=== PATIENT | female | born 1965 | race Asian ===

== ENCOUNTER 2022-12-25 16:09 | Emergency (ER) | payer MEDICAID ==
[~2022-12-25] VITALS: Ht 137.2 cm; Wt 63.6 kg
[2022-12-25 16:31] LABS: BASOPHILS # (AUTO) 0.1 X10'3 (0-0.2); BASOPHILS % (AUTO) 1.9 % (0-1); EOSINOPHILS # (AUTO) 0.1 X10'3 (0-0.9); EOSINOPHILS % (AUTO) 1.6 % (0-6); HEMATOCRIT 29.4 % (35.0-45.0); HEMOGLOBIN 8.9 g/dl (12.0-16.0); LYMPHOCYTES # (AUTO) 1.6 X10'3 (1.1-4.8); LYMPHOCYTES % (AUTO) 29.7 % (21-51); MEAN CORPUSCULAR HEMOGLOBIN 19.5 PG (27.0-31.0); MEAN CORPUSCULAR HGB CONC 30.2 g/dL (33.0-36.5); MEAN CORPUSCULAR VOLUME 64.5 FL (78-98); MEAN PLATELET VOLUME 8.3 FL (7.4-10.4); MONOCYTES # (AUTO) 0.4 X10'3 (0-0.9); NEUTROPHILS # (AUTO) 3.2 X10'3 (1.8-7.7); NEUTROPHILS % (AUTO) 58.8 % (42-75); PLATELET COUNT 332 X10'3 (140-440); RED BLOOD COUNT 4.56 X10'6 (4.20-5.60); RED CELL DISTRIBUTION WIDTH 21.3 % (11.5-14.5); WHITE BLOOD COUNT 5.5 X10'3 (4.5-11.0)
[2022-12-25 16:42] LABS: ALANINE AMINOTRANSFERASE 19 U/L (12-78); ALBUMIN 3.1 G/DL (3.4-5.0); ALBUMIN/GLOBULIN RATIO 0.7 (1.1-1.5); ALKALINE PHOSPHATASE 114 IU/L (46-116); ANION GAP 8 (8-16); ASPARTATE AMINO TRANSFERASE 20 U/L (10-37); BILIRUBIN,TOTAL 0.3 MG/DL (0.1-1.0); BLOOD UREA NITROGEN 11 MG/DL (7-18); CHLORIDE 106 MMOL/L (99-107); CREATININE 0.55 MG/DL (0.40-0.90); GLUCOSE 111 MG/DL (70-104); POTASSIUM 4.3 MMOL/L (3.5-5.1); SODIUM 140 MMOL/L (135-145); TOTAL CARBON DIOXIDE 25.6 MMOL/L (24-32); TOTAL PROTEIN 7.3 G/DL (6.4-8.2); eGFR > 90 ML/MIN
[2022-12-25 16:45] LABS: LARGE PLATELETS FEW; PLATELET ESTIMATE NORMAL
[2022-12-25 16:46] LABS: ANISOCYTOSIS 3+; ELLIPTOCYTES 1+; HYPOCHROMASIA 1+; MICROCYTOSIS 2+
[2022-12-25 16:49] LABS: MAGNESIUM 1.9 MG/DL (1.5-2.4)
[2022-12-25] MEDS ORDERED: potassium Cl 20 mEq SR tablet PO STA (17:56)
[2022-12-25] MEDS ORDERED: furosemide 10 MG/1 ML 10ml inj IV ONE (18:00)
[2022-12-25] MEDS ORDERED: POTA-192 PO (19:13)
[2022-12-25] MEDS ORDERED: FURO-150 PO (19:13)
[2022-12-25] MEDS ORDERED: CLOP-32 PO (19:13)
[2022-12-25 19:37] VITALS: BP 126/72
== END 2022-12-25 19:39 | disposition home or self-care (01) ==
LOC: ER 16:10
DX: R07.9 Chest pain, unspecified (principal); I25.10 Atherosclerotic heart disease of native coronary artery without angina pectoris; R05.2 Subacute cough; I50.9 Heart failure, unspecified
CPT/HCPCS: 36415; 71045; 80053; 83735; 83880; 84484; 85008; 85025; 93005; 96374; 99285; J1940

== ENCOUNTER 2023-01-04 21:21 | Emergency (ER) | payer MEDICAID ==
[~2023-01-04] VITALS: Ht 139.7 cm; Wt 79.5 kg
[~2023-01-04 21:21] MED LIST: CLOP-32 PO; FURO-150 PO; POTA-192 PO
[2023-01-04] MEDS ORDERED: albuterol 2.5 MG/3 ML nebule NEB ONE (21:30)
[2023-01-04] MEDS ORDERED: methylPREDNISolone sod succ 125mg/2ml vial IV ONE (21:30)
[2023-01-04 21:51] LABS: BASOPHILS # (AUTO) 0.1 X10'3 (0-0.2); BASOPHILS % (AUTO) 1.2 % (0-1); EOSINOPHILS # (AUTO) 0.1 X10'3 (0-0.9); EOSINOPHILS % (AUTO) 2.3 % (0-6); HEMATOCRIT 27.6 % (35.0-45.0); HEMOGLOBIN 8.4 g/dl (12.0-16.0); LYMPHOCYTES # (AUTO) 1.7 X10'3 (1.1-4.8); LYMPHOCYTES % (AUTO) 29.5 % (21-51); MEAN CORPUSCULAR HEMOGLOBIN 19.5 PG (27.0-31.0); MEAN CORPUSCULAR HGB CONC 30.4 g/dL (33.0-36.5); MEAN CORPUSCULAR VOLUME 64.2 FL (78-98); MEAN PLATELET VOLUME 7.3 FL (7.4-10.4); MONOCYTES # (AUTO) 0.4 X10'3 (0-0.9); MONOCYTES % (AUTO) 6.2 % (2-12); NEUTROPHILS # (AUTO) 3.5 X10'3 (1.8-7.7); NEUTROPHILS % (AUTO) 60.8 % (42-75); PLATELET COUNT 342 X10'3 (140-440); RED BLOOD COUNT 4.29 X10'6 (4.20-5.60); RED CELL DISTRIBUTION WIDTH 21.4 % (11.5-14.5); WHITE BLOOD COUNT 5.8 X10'3 (4.5-11.0)
[2023-01-04 22:05] LABS: ALANINE AMINOTRANSFERASE 12 U/L (12-78); ALBUMIN/GLOBULIN RATIO 0.7 (1.1-1.5); ALKALINE PHOSPHATASE 105 IU/L (46-116); ANION GAP 11 (8-16); ASPARTATE AMINO TRANSFERASE 18 U/L (10-37); BILIRUBIN,TOTAL 0.3 MG/DL (0.1-1.0); BLOOD UREA NITROGEN 11 MG/DL (7-18); BUN/CREATININE RATIO 19.3 (6.6-38.0); CALCIUM 8.7 MG/DL (8.5-10.1); CHLORIDE 105 MMOL/L (99-107); CREATININE 0.57 MG/DL (0.40-0.90); GLUCOSE 111 MG/DL (70-104); SODIUM 138 MMOL/L (135-145); TOTAL CARBON DIOXIDE 22.2 MMOL/L (24-32); TOTAL PROTEIN 7.4 G/DL (6.4-8.2); eGFR > 90 ML/MIN
[2023-01-04 22:10] LABS: POTASSIUM 4.1 MMOL/L (3.5-5.1)
[2023-01-04 22:33] LABS: ANISOCYTOSIS 3+; MICROCYTOSIS 2+; PLATELET ESTIMATE NORMAL
[2023-01-04 22:40] LABS: ELLIPTOCYTES 1+; HYPOCHROMASIA 1+; SCHISTOCYTES FEW
[2023-01-05] MEDS ORDERED: dexamethasone 4mg tablet PO ONE (01:00)
[2023-01-05] MEDS ORDERED: albuterol 2.5 MG/3 ML nebule NEB ONE (01:00)
[2023-01-05] MEDS ORDERED: ALBU6.7H14 INH (01:03)
[2023-01-05] MEDS ORDERED: DEC4T PO (01:03)
[2023-01-05 02:30] VITALS: BP 98/65
== END 2023-01-05 02:31 | disposition home or self-care (01) ==
LOC: ER 21:21
DX: J44.1 Chronic obstructive pulmonary disease with (acute) exacerbation (principal); I50.9 Heart failure, unspecified; M19.90 Unspecified osteoarthritis, unspecified site
CPT/HCPCS: 36415; 71045; 80053; 83880; 84484; 85008; 85025; 93005; 94640; 96374; 99285; J2930; 94760

== ENCOUNTER 2023-10-19 14:15 | Inpatient (IN) | payer MEDICAID ==
[~2023-10-19] VITALS: Ht 142.2 cm; Wt 62.3 kg
[~2023-10-19 14:15] MED LIST changes: +ALBU6.7H14 INH; -FURO-150 PO; -POTA-192 PO
[2023-10-19] MEDS ORDERED: aspirin 81mg tab.chew PO ONE (14:30)
[2023-10-19 17:12] LABS: BASOPHILS % (AUTO) 0.7 % (0-1); EOSINOPHILS % (AUTO) 0.6 % (0-6); LYMPHOCYTES # (AUTO) 1.5 X10'3 (1.1-4.8); LYMPHOCYTES % (AUTO) 24.6 % (21-51); MEAN PLATELET VOLUME 8.6 FL (7.4-10.4); MONOCYTES # (AUTO) 0.5 X10'3 (0-0.9); MONOCYTES % (AUTO) 7.9 % (2-12); NEUTROPHILS % (AUTO) 66.2 % (42-75); PLATELET COUNT 300 X10'3 (140-440)
[2023-10-19 17:27] LABS: ALANINE AMINOTRANSFERASE 13 U/L (12-78); ALBUMIN 2.6 G/DL (3.4-5.0); ALBUMIN/GLOBULIN RATIO 0.6 (1.1-1.5); ALKALINE PHOSPHATASE 107 IU/L (46-116); ANION GAP 7 (8-16); ASPARTATE AMINO TRANSFERASE 21 U/L (10-37); BILIRUBIN,TOTAL 0.9 MG/DL (0.1-1.0); BLOOD UREA NITROGEN 12 MG/DL (7-18); BUN/CREATININE RATIO 20.7 (10.0-20.0); CALCIUM 8.6 MG/DL (8.5-10.1); CHLORIDE 105 MMOL/L (99-107); CREATININE 0.58 MG/DL (0.40-0.90); POTASSIUM 4.3 MMOL/L (3.5-5.1); SODIUM 137 MMOL/L (135-145); TOTAL CARBON DIOXIDE 25.3 MMOL/L (24-32); TOTAL PROTEIN 6.8 G/DL (6.4-8.2); eCRCL 63 ML/MIN; eGFR > 90 ML/MIN
[2023-10-19 17:37] LABS: MAGNESIUM 1.9 MG/DL (1.5-2.4); PRO BRAIN NATRIURETIC PEPTIDE 9804 PG/ML (0-125)
[2023-10-19 17:38] LABS: GLUCOSE 97 MG/DL (70-104)
[2023-10-19 17:48] LABS: HEMOGLOBIN 8.3 g/dl (12.0-16.0); MEAN CORPUSCULAR HEMOGLOBIN 18.2 PG (27.0-31.0); MEAN CORPUSCULAR HGB CONC 30.7 g/dL (33.0-36.5); MEAN CORPUSCULAR VOLUME 59.1 FL (78-98); RED BLOOD COUNT 4.57 X10'6 (4.20-5.60); RED CELL DISTRIBUTION WIDTH 21.5 % (11.5-14.5)
[2023-10-19 18:45] LABS: PLATELET ESTIMATE NORMAL
[2023-10-19 18:46] LABS: ANISOCYTOSIS 3+; HYPOCHROMASIA 1+; MICROCYTOSIS 2+
[2023-10-19 18:47] LABS: ELLIPTOCYTES 1+; SCHISTOCYTES FEW
[2023-10-19] MEDS ORDERED: aspirin 325mg tablet, delayed-release (Ecotrin) PO ONE (20:00)
[2023-10-19] MEDS ORDERED: nitroGLYCERIN 1gm ointment UD TP ONE (20:00)
[2023-10-19] MEDS ORDERED: heparin 10,000 units/1 ML INJ IV ONE (20:05)
[2023-10-19 20:27] LABS: APTT 25 SECONDS (22-32); INR 1.1 INR; PROTHROMBIN TIME 11.6 SECONDS (9.0-12.0)
[2023-10-19 20:50] LABS: BASOPHILS # (AUTO) 0.1 X10'3 (0-0.2); EOSINOPHILS # (AUTO) 0.1 X10'3 (0-0.9); EOSINOPHILS % (AUTO) 1.1 % (0-6); LYMPHOCYTES # (AUTO) 1.4 X10'3 (1.1-4.8); LYMPHOCYTES % (AUTO) 27.4 % (21-51); MEAN PLATELET VOLUME 8.3 FL (7.4-10.4); MONOCYTES # (AUTO) 0.3 X10'3 (0-0.9); MONOCYTES % (AUTO) 5.8 % (2-12); NEUTROPHILS # (AUTO) 3.4 X10'3 (1.8-7.7); NEUTROPHILS % (AUTO) 64.7 % (42-75); PLATELET COUNT 313 X10'3 (140-440); WHITE BLOOD COUNT 5.2 X10'3 (4.5-11.0)
[2023-10-19 21:25] LABS: HEMATOCRIT 26.7 % (35.0-45.0); MEAN CORPUSCULAR HEMOGLOBIN 17.9 PG (27.0-31.0); MEAN CORPUSCULAR HGB CONC 30.1 g/dL (33.0-36.5); MEAN CORPUSCULAR VOLUME 59.3 FL (78-98); RED CELL DISTRIBUTION WIDTH 21.6 % (11.5-14.5)
[2023-10-19] MEDS ORDERED: mag hydrox/Alum hydrox/simeth 30ml oral suspension PO PRN (21:50)
[2023-10-19] MEDS ORDERED: magnesium hydroxide 30ml (MOM) UD suspension PO PRN (21:50)
[2023-10-19] MEDS ORDERED: acetaminophen 325mg tablet PO PRN (21:50)
[2023-10-19] MEDS ORDERED: PERFLUTREN PROTEIN-A MICROSPHR (Optison) 0.22 MG/ML 3ML VIAL IV ONE (21:50)
[2023-10-19] MEDS ORDERED: potassium Cl 20 mEq SR tablet PO PRN ×2 (21:50)
[2023-10-19] MEDS ORDERED: magnesium 2GM in 50ml NS 50 ML IV PRN (21:50)
[2023-10-19] MEDS ORDERED: magnesium 4gm in 100ml NS 100 ML IV PRN (21:50)
[2023-10-19] MEDS ORDERED: magnesium Cl slow-release 64mg tablet PO PRN (21:50)
[2023-10-19] MEDS ORDERED: potassium Cl 40MEQ/1/2NS 520ml 520 ML IV PRN (21:50)
[2023-10-19] MEDS ORDERED: ondansetron/PF 4mg/2ml inj IV PRN (21:50)
[2023-10-19] MEDS ORDERED: ALBU6.7H14 INH (21:52)
[2023-10-19] MEDS: heparin 25,000 UNIT/250ml bag 250 ML IV PRN (22:06)
[2023-10-19] MEDS ORDERED: FLUT16SP26 BOTHNARES (22:48)
[2023-10-19] MEDS ORDERED: METO25TA6 PO (22:48)
[2023-10-19] MEDS ORDERED: FURO40TA4 PO (22:48)
[2023-10-19] MEDS ORDERED: CHOL20002 PO (22:48)
[2023-10-19] MEDS ORDERED: LISI5TAB22 PO (22:48)
[2023-10-19] MEDS ORDERED: POTA-188 PO (22:48)
[2023-10-19] MEDS ORDERED: PRED10TA PO (22:48)
[2023-10-19] MEDS ORDERED: OXYB10TA30 PO (22:48)
[2023-10-19] MEDS ORDERED: CLOP75TA34 PO (22:51)
[2023-10-19 23:32] LABS: THYROID STIMULATING HORMONE 0.4 ulU/ml (0.34-4.50)
[2023-10-20] VITALS (11 sets, daily range): BP systolic 82–109; BP diastolic 50–70; PULSE 75–84; RESP 14–20; TEMP 97.4–98.2; O2SAT 94–99
--- NOTE | 2023-10-20 00:35 | NUR ---
pt is a&o x4, ambulatory to the BR independently to br c steady gait, VSS
[2023-10-20] MEDS ORDERED: albuterol 2.5 MG/3 ML nebule NEB SCH (02:00)
[2023-10-20 05:00] LABS: EOSINOPHILS # (AUTO) 0.1 X10'3 (0-0.9); LYMPHOCYTES # (AUTO) 1.2 X10'3 (1.1-4.8); MEAN PLATELET VOLUME 8.2 FL (7.4-10.4)
[2023-10-20 05:02] LABS: BASOPHILS % (AUTO) 0.7 % (0-1); EOSINOPHILS % (AUTO) 2.1 % (0-6); LYMPHOCYTES % (AUTO) 24.1 % (21-51); MONOCYTES # (AUTO) 0.2 X10'3 (0-0.9); MONOCYTES % (AUTO) 3.5 % (2-12); NEUTROPHILS # (AUTO) 3.5 X10'3 (1.8-7.7); NEUTROPHILS % (AUTO) 69.6 % (42-75); PLATELET COUNT 275 X10'3 (140-440)
[2023-10-20 05:07] LABS: ALANINE AMINOTRANSFERASE 11 U/L (12-78); ALBUMIN 2.4 G/DL (3.4-5.0); ALBUMIN/GLOBULIN RATIO 0.6 (1.1-1.5); ALKALINE PHOSPHATASE 99 IU/L (46-116); ANION GAP 8 (8-16); ASPARTATE AMINO TRANSFERASE 20 U/L (10-37); BILIRUBIN,TOTAL 0.8 MG/DL (0.1-1.0); BLOOD UREA NITROGEN 14 MG/DL (7-18); BUN/CREATININE RATIO 21.2 (10.0-20.0); CALCIUM 8.3 MG/DL (8.5-10.1); CHLORIDE 106 MMOL/L (99-107); CREATININE 0.66 MG/DL (0.40-0.90); MAGNESIUM 1.9 MG/DL (1.5-2.4); SODIUM 137 MMOL/L (135-145); TOTAL CARBON DIOXIDE 22.9 MMOL/L (24-32); TOTAL PROTEIN 6.2 G/DL (6.4-8.2); eCRCL 55 ML/MIN; eGFR > 90 ML/MIN
[2023-10-20 05:08] LABS: GLUCOSE 92 MG/DL (70-104)
[2023-10-20] MEDS: heparin 10,000 units/1 ML INJ IV PRN ×2 (05:13→15:13)
[2023-10-20 05:22] LABS: % IRON SATURATION 4 % (11-46); IRON 13 UG/DL (49-151); TOTAL IRON BINDING CAPACITY 334 UG/DL (259-388)
[2023-10-20 05:28] LABS: HEMATOCRIT 24.2 % (35.0-45.0); HEMOGLOBIN 7.4 g/dl (12.0-16.0); MEAN CORPUSCULAR HEMOGLOBIN 18.1 PG (27.0-31.0); MEAN CORPUSCULAR HGB CONC 30.6 g/dL (33.0-36.5); RED CELL DISTRIBUTION WIDTH 21.6 % (11.5-14.5)
--- NOTE | 2023-10-20 06:37 | NUR ---
Problems reprioritized. Patient report given, questions answered & plan of care reviewed with KAYLEEN VELÁZQUEZ.
[2023-10-20] MEDS ORDERED: furosemide 40mg tablet PO SCH (08:00)
[2023-10-20] MEDS: K and/or MAG REPLACEMENT MC SCH ×2 (08:00→20:00)
[2023-10-20] MEDS: oxybutynin 5mg tablet PO SCH ×2 (08:36→21:23)
[2023-10-20] MEDS: lisinopril 5mg tablet PO SCH (08:36)
[2023-10-20] MEDS: cholecalciferol (vitamin D3) 1,000 unit (25mcg) tablet PO SCH (08:36)
[2023-10-20] MEDS: metoprolol tartrate 25mg tablet PO SCH ×2 (08:36→23:29)
[2023-10-20] MEDS: clopidogrel 75mg tablet PO SCH (08:36)
[2023-10-20] MEDS: docusate sod 100mg capsule PO SCH ×2 (08:37→20:00)
--- NOTE | 2023-10-20 09:44 | NUR ---
ORDERS FOR NORMAL SALINE AT 100ML/HR, NPO EXCEPT FOR MEDICATION AND CATH PUT IN PER DR. FARRELL.
--- NOTE | 2023-10-20 09:54 | NUR ---
orders for tox screen in urine put in per Dr. Camara.
[2023-10-20] MEDS: normal saline 1000ml 1,000 ML IV SCH ×2 (10:40→19:45)
[2023-10-20 14:30] LABS: URINE AMPHETAMINE SCREEN NEGATIVE (Neg); URINE BARBITUATE SCREEN NEGATIVE (Neg); URINE BENZODIAZEPINES SCREEN NEGATIVE (Neg); URINE CANNABINOID SCREEN NEGATIVE (Neg); URINE COCAINE SCREEN NEGATIVE (Neg); URINE METHADONE SCREEN NEGATIVE (Neg); URINE OPIATE SCREEN NEGATIVE (Neg); URINE PHENCYCLIDINE SCREEN NEGATIVE (Neg)
[2023-10-20] MEDS: furosemide 40mg/4ml inj IV SCH (16:05)
[2023-10-20] MEDS ORDERED: midazolam 1 mg/ML 2ml injection ONE (17:29)
[2023-10-20] MEDS ORDERED: fentaNYL/PF 50MCG/1 ML 2ML syringe ONE (17:29)
[2023-10-20] MEDS ORDERED: iohexol 350 MG/ML 50ML vial IV ONE (17:29)
[2023-10-20] MEDS ORDERED: iohexol 350MG/ML 100ml bottle IV ONE (17:30)
[2023-10-20] MEDS ORDERED: LIDOcaine 1% (10mg/ml)w/preservative inj. 20ml MDV ONE (17:30)
[2023-10-20] MEDS ORDERED: tirofiban 12.5mg in NS 250mL 0 ML IV ONE (17:30)
[2023-10-20] MEDS ORDERED: heparin 25,000 UNIT/250ml bag 0 ML IV ONE (17:30)
[2023-10-20] MEDS ORDERED: heparin 1,000 UNITS/NS 500ml 500 ML ONE (17:30)
[2023-10-20] MEDS ORDERED: heparin 1,000unit/ml 10ml vial 0 ML ONE (17:30)
[2023-10-20] MEDS ORDERED: furosemide 20 MG/2 ML vial IV ONE (18:15)
--- NOTE | 2023-10-20 18:15 | NUR ---
Orders for type and screen, 2 units of PRBCs, and 20mg IV lasix put in per Dr. Deleon.
[2023-10-20] MEDS ORDERED: guaiFENesin/DM 10ml UD oral syrup PO PRN (23:15)
--- NOTE | 2023-10-20 23:40 | NUR ---
DR DELACRUZ INFORMED RE PATIENT'S BP. ORDER IS TO HOLD LASIX FOR THE BLOOD TRANSFUSION
[2023-10-21] VITALS (11 sets, daily range): BP systolic 91–118; BP diastolic 60–71; PULSE 59–74; RESP 15–22; TEMP 97.3–98.8; O2SAT 95–100
[2023-10-21] MEDS: normal saline 1000ml 1,000 ML IV SCH ×2 (05:45→21:01)
[2023-10-21] MEDS: heparin 25,000 UNIT/250ml bag 250 ML IV PRN (05:56)
--- NOTE | 2023-10-21 06:41 | NUR ---
Problems reprioritized. Patient report given, questions answered & plan of care reviewed with KAYLEEN ALFORD.
[2023-10-21] MEDS: lisinopril 5mg tablet PO SCH (07:41)
[2023-10-21] MEDS: cholecalciferol (vitamin D3) 1,000 unit (25mcg) tablet PO SCH (07:41)
[2023-10-21] MEDS: docusate sod 100mg capsule PO SCH ×2 (07:41→21:00)
[2023-10-21] MEDS: clopidogrel 75mg tablet PO SCH (07:42)
[2023-10-21] MEDS: metoprolol tartrate 25mg tablet PO SCH ×2 (07:42→21:00)
[2023-10-21] MEDS: oxybutynin 5mg tablet PO SCH ×2 (07:42→20:59)
[2023-10-21] MEDS: furosemide 40mg/4ml inj IV SCH (07:42)
[2023-10-21] MEDS: K and/or MAG REPLACEMENT MC SCH ×2 (08:00→20:00)
[2023-10-21 10:57] LABS: BASOPHILS % (AUTO) 0.6 % (0-1); EOSINOPHILS # (AUTO) 0.1 X10'3 (0-0.9); EOSINOPHILS % (AUTO) 2.2 % (0-6); LYMPHOCYTES # (AUTO) 0.9 X10'3 (1.1-4.8); LYMPHOCYTES % (AUTO) 25.2 % (21-51); MEAN PLATELET VOLUME 8.3 FL (7.4-10.4); MONOCYTES # (AUTO) 0.2 X10'3 (0-0.9); MONOCYTES % (AUTO) 6.7 % (2-12); NEUTROPHILS # (AUTO) 2.4 X10'3 (1.8-7.7); NEUTROPHILS % (AUTO) 65.3 % (42-75); PLATELET COUNT 291 X10'3 (140-440); WHITE BLOOD COUNT 3.6 X10'3 (4.5-11.0)
[2023-10-21 11:11] LABS: ALBUMIN 2.7 G/DL (3.4-5.0); ALBUMIN/GLOBULIN RATIO 0.7 (1.1-1.5); ALKALINE PHOSPHATASE 105 IU/L (46-116); ANION GAP 10 (8-16); ASPARTATE AMINO TRANSFERASE 17 U/L (10-37); BILIRUBIN,TOTAL 1.4 MG/DL (0.1-1.0); BLOOD UREA NITROGEN 9 MG/DL (7-18); BUN/CREATININE RATIO 12.9 (10.0-20.0); CALCIUM 8.8 MG/DL (8.5-10.1); CHLORIDE 103 MMOL/L (99-107); CHOL/HDL RATIO 2.4 (0.00-4.99); CHOLESTEROL 130 MG/DL (0-200); HDL CHOLESTEROL 54 MG/DL (35-60); LDL CHOLESTEROL 64 MG/DL (50-100); MAGNESIUM 1.9 MG/DL (1.5-2.4); POTASSIUM 3.6 MMOL/L (3.5-5.1); SODIUM 139 MMOL/L (135-145); TOTAL CARBON DIOXIDE 26.5 MMOL/L (24-32); TOTAL PROTEIN 6.6 G/DL (6.4-8.2); TRIGLYCERIDES 63 MG/DL (20-135); eCRCL 52 ML/MIN; eGFR 87 ML/MIN
[2023-10-21 11:14] LABS: ALANINE AMINOTRANSFERASE < 6 U/L (12-78); GLUCOSE 97 MG/DL (70-104)
[2023-10-21] MEDS ORDERED: metoprolol tartrate 1mg/ml inj IV PRN (11:25)
[2023-10-21] MEDS ORDERED: regadenoson 0.4mg/5ml syringe IV PRN (11:25)
[2023-10-21] MEDS ORDERED: nitroGLYCERIN 0.4mg SUBLingual tab SL PRN (11:25)
[2023-10-21] MEDS ORDERED: aminophylline 250mg/10ml inj. IV PRN (11:25)
[2023-10-21 11:53] LABS: HEMATOCRIT 31.9 % (35.0-45.0); HEMOGLOBIN 9.9 g/dl (12.0-16.0); RED BLOOD COUNT 4.68 X10'6 (4.20-5.60)
[2023-10-21 11:54] LABS: MEAN CORPUSCULAR VOLUME 68.1 FL (78-98)
[2023-10-21 11:55] LABS: MEAN CORPUSCULAR HEMOGLOBIN 21.1 PG (27.0-31.0); RED CELL DISTRIBUTION WIDTH 27.4 % (11.5-14.5)
[2023-10-21 13:55] LABS: ANISOCYTOSIS 3+; ELLIPTOCYTES 1+; MICROCYTOSIS 2+; PLATELET ESTIMATE NORMAL
[2023-10-21 13:56] LABS: SCHISTOCYTES FEW
--- NOTE | 2023-10-21 18:52 | NUR ---
Patient in room PCU [id number]. I have received report from PRASHANTH BEYER and had the opportunity to ask questions and assume patient care.
[2023-10-22] VITALS (11 sets, daily range): BP systolic 97–115; BP diastolic 51–77; PULSE 68–96; RESP 14–20; TEMP 97.5–97.7; O2SAT 95–97
[2023-10-22] MEDS: normal saline 1000ml 1,000 ML IV SCH ×2 (01:45→11:45)
--- NOTE | 2023-10-22 06:02 | NUR ---
Problems reprioritized. Patient report given, questions answered & plan of care reviewed with PRASHANTH BEYER.
[2023-10-22 06:45] LABS: EOSINOPHILS # (AUTO) 0.1 X10'3 (0-0.9); MONOCYTES # (AUTO) 0.3 X10'3 (0-0.9); NEUTROPHILS # (AUTO) 2.5 X10'3 (1.8-7.7)
[2023-10-22 06:47] LABS: BASOPHILS # (AUTO) 0.1 X10'3 (0-0.2); BASOPHILS % (AUTO) 1.4 % (0-1); LYMPHOCYTES % (AUTO) 26.6 % (21-51); MEAN PLATELET VOLUME 8.7 FL (7.4-10.4); MONOCYTES % (AUTO) 6.6 % (2-12); NEUTROPHILS % (AUTO) 63.4 % (42-75); PLATELET COUNT 293 X10'3 (140-440); WHITE BLOOD COUNT 3.9 X10'3 (4.5-11.0)
[2023-10-22 07:30] LABS: ALANINE AMINOTRANSFERASE 13 U/L (12-78); ALBUMIN 2.6 G/DL (3.4-5.0); ALBUMIN/GLOBULIN RATIO 0.7 (1.1-1.5); ALKALINE PHOSPHATASE 100 IU/L (46-116); ANION GAP 9 (8-16); ASPARTATE AMINO TRANSFERASE 17 U/L (10-37); BILIRUBIN,TOTAL 1.2 MG/DL (0.1-1.0); BLOOD UREA NITROGEN 13 MG/DL (7-18); BUN/CREATININE RATIO 17.8 (10.0-20.0); CALCIUM 8.7 MG/DL (8.5-10.1); CHLORIDE 105 MMOL/L (99-107); CREATININE 0.73 MG/DL (0.40-0.90); MAGNESIUM 1.8 MG/DL (1.5-2.4); POTASSIUM 3.5 MMOL/L (3.5-5.1); SODIUM 141 MMOL/L (135-145); TOTAL CARBON DIOXIDE 26.8 MMOL/L (24-32); TOTAL PROTEIN 6.5 G/DL (6.4-8.2); eCRCL 50 ML/MIN; eGFR 83 ML/MIN
[2023-10-22 07:33] LABS: GLUCOSE 92 MG/DL (70-104)
[2023-10-22 07:41] LABS: HEMATOCRIT 32.7 % (35.0-45.0); HEMOGLOBIN 9.9 g/dl (12.0-16.0); MEAN CORPUSCULAR HEMOGLOBIN 20.7 PG (27.0-31.0); MEAN CORPUSCULAR HGB CONC 30.3 g/dL (33.0-36.5); MEAN CORPUSCULAR VOLUME 68.4 FL (78-98); RED BLOOD COUNT 4.79 X10'6 (4.20-5.60); RED CELL DISTRIBUTION WIDTH 27.1 % (11.5-14.5)
[2023-10-22] MEDS: docusate sod 100mg capsule PO SCH (08:00)
[2023-10-22] MEDS: K and/or MAG REPLACEMENT MC SCH (08:00)
[2023-10-22] MEDS: furosemide 40mg/4ml inj IV SCH (08:00)
[2023-10-22] MEDS: metoprolol tartrate 25mg tablet PO SCH (08:00)
[2023-10-22] MEDS: oxybutynin 5mg tablet PO SCH (11:00)
[2023-10-22] MEDS ORDERED: ASPI-1265 PO (12:21)
[2023-10-22] MEDS ORDERED: SPIR25TA5 PO (12:21)
[2023-10-22] MEDS ORDERED: ATOR20TA66 PO (12:21)
[2023-10-22] MEDS ORDERED: ALBU2.5V7 NEB (12:21)
[2023-10-22] MEDS: cholecalciferol (vitamin D3) 1,000 unit (25mcg) tablet PO SCH (12:30)
[2023-10-22] MEDS: lisinopril 5mg tablet PO SCH (12:30)
[2023-10-22] MEDS: clopidogrel 75mg tablet PO SCH (12:30)
[2023-10-22] MEDS ORDERED: FURO40TA4 PO (12:44)
--- NOTE | 2023-10-22 14:30 | NUR ---
Discharge instructions discussed with patient. All questions answered. Instructed on new medication and what medication to stop or change. Also discussed the importance of seeing her primary doctor as soon as possible. All questions answered. Pt states she understands all instructions. Pt will leave unit via wheelchair to private car.
== END 2023-10-22 15:45 | disposition home or self-care (01) | DRG 190 ==
LOC: ER 14:16 → ED HOLD 21:51 → PCU 3S 10-20 01:18
PROVIDERS: ADMIT Internal Medicine; ATTEND Internal Medicine
PROC: 4A02XM4 Measurement of Cardiac Total Activity, External Approach (ICD-10-PCS; principal; 2023-10-22)
PROC: 3E073KZ Introduction of Other Diagnostic Substance into Coronary Artery, Percutaneous Approach (ICD-10-PCS; 2023-10-22)
DX: I21.4 Non-ST elevation (NSTEMI) myocardial infarction (principal); I50.23 Acute on chronic systolic (congestive) heart failure; I42.7 Cardiomyopathy due to drug and external agent; Z95.1 Presence of aortocoronary bypass graft; K92.2 Gastrointestinal hemorrhage, unspecified; E03.9 Hypothyroidism, unspecified; I25.10 Atherosclerotic heart disease of native coronary artery without angina pectoris; T43.655A Adverse effect of methamphetamines, initial encounter; D50.9 Iron deficiency anemia, unspecified; M06.9 Rheumatoid arthritis, unspecified; Z79.01 Long term (current) use of anticoagulants; Z79.899 Other long term (current) drug therapy; Z98.84 Bariatric surgery status; Y92.89 Other specified places as the place of occurrence of the external cause; I25.2 Old myocardial infarction
CPT/HCPCS: 36415; 36430; 71045; 78452; 80053; 80061; 80305; 82948; 83540; 83550; 83735; 83880; 84439; 84443; 84484; 85008; 85025; 85379; 85610; 85730; 86885; 86900; 86901; 86920; 87081; 93005; 93017; 93306; 99285; A9500; G0378; J1644; J1940; J2250; J2785; J3010; J3246; J3490; J7030; J7040; P9016; Q9967